=== PATIENT | female | born 1980 | race Caucasian/White ===

== ENCOUNTER 2019-08-07 00:05 | Observation (INO) | payer BC ==
[~2019-08-07] VITALS: Ht 160 cm; Wt 64.1 kg
[2019-08-07] MEDS ORDERED: ACETAMINOPHEN 500 MG TABLET PO PRN (00:15)
[2019-08-07] MEDS ORDERED: IV RINGERS,LACTATED 1000ML 1,000 ML IV SCH (00:30)
[2019-08-07 00:38] LABS: BILIRUBIN,URINE NEGATIVE (NEG); CLARITY,URINE CLEAR; COLOR,URINE YELLOW; NITRITE,URINE NEGATIVE (NEG); PROTEIN,URINE NEGATIVE (NEG-TRACE); UROBILINOGEN,URINE 0.2 mg/dL (0.2 mg/dL)
[2019-08-07 00:40] LABS: BARBITURATES NEG (NEG); BENZODIAZEPINES NEG (NEG); CANNABINOIDS NEG (NEG); COCAINE NEG (NEG); METHADONE NEG (NEG); OPIATES NEG (NEG); PHENCYCLIDINE NEG (NEG)
[2019-08-07 00:43] LABS: AMPHETAMINE/METHAMPHETAMINE NEG (NEG)
[2019-08-07 00:45] LABS: SQUAMOUS EPITHELIAL CELL,UR FEW /LPF
[2019-08-07 00:46] LABS: BACTERIA,URINE MODERATE /HPF (0-FEW); RBC,URINE 0 /HPF (0-2)
== END 2019-08-07 01:06 | disposition home or self-care (01) ==
LOC: 3 SO LND 00:05
PROVIDERS: ADMIT Obstetrics & Gynecology; ATTEND Obstetrics & Gynecology
DX: O26.893 Other specified pregnancy related conditions, third trimester (principal); Z3A.36 36 weeks gestation of pregnancy
CPT/HCPCS: 80307; 81001; 87086; G0378; G0379